=== PATIENT | female | born 1970 | race Caucasian/White ===

== ENCOUNTER → 2016-10-04 | Outpatient (CLI) | payer OTHER ==
[~2016-10-04] MED LIST: ALAVERT10 M1 PO; ALBUTEROL MININEB NEB; ALBUTEROL17 GM INH; ALDACTONE PO; AMARYL PO; B/P MED; BENZONATATE PO; BYETTA10 MCG/0.0 INJ; CIPRO PO; DICLOFENAC PO; FLONASE16 GM; GLUCOPHAGE XR500 MG PO; IBUPROFEN PO; LEVEMIR SUBQ; LISINOPRIL PO; LOPID600 MG PO; MOBIC PO; NAMENDA10 MG PO; PERCOCET 51 UDTAB 5/ PO; PHENERGAN PO; PROVERA PO; PROZAC PO; PYRIDIUM PO; SARAFEM20 MG PO; TYLENOL #3 PO; TYLOX 5/500 CAP1 CAP PO; VOLTAREN75 MG PO; ZITHROMAX PO; [UNRECOGNIZED DRUG - REMARK]
--- NOTE | ~2016-10-04 | US128 ---
[id number] [facility] [address] [place], [place] [address] [id number] O MR#: [id number] Acc #: [id number] NAME: GERRI LALA : 1970 SEX: F STUDY DATE/TIME: 10/04/2016 13:22 UNIT: [facility] ROOM: STUDY DESCRIPTION: Thyroid Attending Physician: Yovana Webber Referring Physician: Yovana Webber Ordering Physician: Yovana Webber Primary Care Physician: [facility] MEDICAL IMAGING REPORT This report is preliminary unless electronic signature is present EXAM Thyroid ultrasound DATE 10/04/2016 HISTORY Enlarged thyroid gland felt at physician physical examination 1 month ago. COMPARISON None. FINDINGS The right thyroid lobe measures 4.0 x 1.1 x 1.7 cm. The isthmus measures 4.3 mm thickness. The left thyroid lobe measures 1.5 x 4.0 x 1.4 cm. The thyroid gland appears diffusely coarsened, heterogeneous and somewhat fibrotic. A cyst is seen within the left upper thyroid pole measuring 9 x 9 x 7 mm. No suspicious solid thyroid nodules is identified. IMPRESSION Thyroid gland appears somewhat coarsened and potentially mildly fibrotic. The thyroid gland does not appear enlarged. A single benign-appearing cyst is seen in the upper left thyroid lobe measuring 9 mm. No suspicious thyroid nodules are seen. Dictated by... Yamileth Manning M.D. THIS IS AN ELECTRONICALLY VERIFIED REPORT Yamileth Manning M.D. at 10/07/2016 8:39 AM MARIANA/lien TD: 10/05/2016 19:18 JOB #: [id number] MEDICAL IMAGING REPORT Page 1 of 1 COPY
== END | disposition home or self-care (01) ==
LOC: CGUS 13:03
DX: E01.0 Iodine-deficiency related diffuse (endemic) goiter (principal)
CPT/HCPCS: 76536

== ENCOUNTER 2016-10-28 13:17 | Emergency (ER) | payer OTHER | END 2016-10-28 14:00 | disposition home or self-care (01) | LOC: SED 13:17 | DX: H60.93 Unspecified otitis externa, bilateral (principal); I10 Essential (primary) hypertension; E11.9 Type 2 diabetes mellitus without complications; M19.90 Unspecified osteoarthritis, unspecified site; Z88.8 Allergy status to other drugs, medicaments and biological substances; Z79.899 Other long term (current) drug therapy | CPT/HCPCS: 99282 ==

== ENCOUNTER 2016-11-04 04:39 | Emergency (ER) | payer OTHER | END 2016-11-04 05:57 | disposition home or self-care (01) | LOC: SED 04:39 | DX: H66.93 Otitis media, unspecified, bilateral (principal); E11.9 Type 2 diabetes mellitus without complications; Z88.8 Allergy status to other drugs, medicaments and biological substances; Z79.899 Other long term (current) drug therapy | CPT/HCPCS: 99282 ==